=== PATIENT | female | born 1975 | race Caucasian/White ===

== ENCOUNTER 2018-03-30 16:07 | Outpatient (CLI) | payer OTHER, SELFPAY ==
--- NOTE | 2018-03-30 14:12 | DI.RAD_ITS ---
SYMPTOMS/DIAGNOSIS: RIGHT WRIST PAIN, DECREASED MOBILITY S/P FALL, M25.531, [id number] RIGHT WRIST: The bones are normally mineralized. No degenerative changes are visible. There is a positive ulnar variance. No bony erosions are seen. IMPRESSION: Positive ulnar variance.
== END 2018-03-30 16:27 ==
PROVIDERS: PCP Nurse Practitioner; Visit Provider Nurse Practitioner
DX: M25.531 Pain in right wrist (principal); M25.631 Stiffness of right wrist, not elsewhere classified; W19.XXXA Unspecified fall, initial encounter
CPT/HCPCS: 73110

== ENCOUNTER 2021-01-18 02:49 | Outpatient (CLI) | payer OTHER, SELFPAY ==
[2021-01-18 09:40] LABS: Abs Immature Grans 0.02 10^3/uL (0.0-0.06); Absolute Basophil Count 0.05 10^3/uL (0.0-0.2); Absolute Eosinophil Count 0.06 10^3/uL (0.0-0.7); Absolute Lymphocyte Count 1.73 10^3/uL (1.2-3.4); Absolute Monocyte Count 0.41 10^3/uL (0.1-0.8); Absolute Neutrophil Count 5.15 10^3/uL (1.2-6.7); Basophils % 0.7; Eosinophils % 0.8; HGB 14.4 g/dL (11.2-15.7); Immature Grans % 0.3; Lymphocytes % 23.3; MCH 32.1 pg (27.0-33.0); MCHC 34.3 % (32.0-36.0); MCV 93.8 fL (80-95); Monocytes % 5.5; Neutrophils % 69.4; Nucleated RBC 0 %; Platelet Count 312 10^3/uL (130-400); RBC 4.48 10^6/uL (3.93-5.22); RDW 11.6 % (11.7-14.6); RDW-SD 39.8 fL; WBC 7.42 10^3/uL (4.4-10.8)
[2021-01-18 11:14] LABS: AST 14 U/L (15-37); Albumin 4.2 g/dL (3.4-5.0); Alkaline Phosphatase 46 U/L (46-116); Anion Gap 9.8 mmol/L (3-11); BUN 10 mg/dL (7-18); Bilirubin, Total 0.4 mg/dL (0.2-1.0); CO2 26.2 mmol/L (21.0-32.0); CREATININE 0.6 mg/dL (0.55-1.02); Calculated LDL 114 mg/dL (<100); Chloride 103 mmol/L (98-107); Cholesterol 235 mg/dL (<200); Glucose 93 mg/dL (74-106); HDL Cholesterol 114 mg/dL (40-60); Potassium 4.2 mmol/L (3.5-5.1); Sodium 139 mmol/L (136-145); Total Protein 7.3 g/dL (6.4-8.2); Triglyceride 36 mg/dL (<150)
[2021-01-18 11:25] LABS: ALT 25 U/L (14-59)
== END 2021-01-18 02:50 | disposition home or self-care (01) ==
LOC: LBO 02:49
PROVIDERS: PCP Nurse Practitioner; Visit Provider Nurse Practitioner
DX: I10 Essential (primary) hypertension (principal); J45.909 Unspecified asthma, uncomplicated
CPT/HCPCS: 36415; 80053; 80061; 85025

== ENCOUNTER 2021-04-09 13:09 | Outpatient (CLI) | payer OTHER, SELFPAY ==
--- NOTE | 2021-04-09 09:00 | DI.RAD_ITS ---
Exam(s) XR SHOULDER LT COMPLETE 2+V EXAM: XR SHOULDER LT COMPLETE 2+V CLINICAL HISTORY: pain since fall, wrenched shoulder, M25.512. TECHNIQUE: 2D digital imaging was performed of the left shoulder. Five images were obtained. AP in ternal and external rotation, Grashey, Y-view and axillary views were obtained. COMPARISON: No exams were available for comparison FINDINGS: BONES: No acute fracture is present. No bony destructive lesion is seen. JOINTS: No dislocation present. SOFT TISSUE: Normal. IMPRESSION: Unremarkable radiographs of the left shoulder. DATA REPOSITORY: RADIATION DOSE DELIVERED:
== END 2021-04-09 13:29 ==
PROVIDERS: PCP Nurse Practitioner; Visit Provider Nurse Practitioner
DX: M25.512 Pain in left shoulder (principal)
CPT/HCPCS: 73030

== ENCOUNTER 2021-04-29 03:10 | Outpatient (CLI) | payer OTHER, SELFPAY ==
--- NOTE | 2021-04-29 07:00 | DI.MAMMO_ITS ---
Exam(s) MAMMO SCREENING EXAM: MAMMO SCREENING CLINICAL HISTORY: screening.z12.39. TECHNIQUE: Bilateral full field digital CC and MLO mammographic images were obtained with 3D tomosyn thesis and utilizing computer aided detection (CAD). COMPARISON: None. This is a baseline mammogram on this 45-year-old patient. No significant family history. FINDINGS: Fibroglandular tissue pattern is moderately dense. In the central left breast approximately 3 cm in from the nipple there is a group of concerning micro calcifications. Spot Mag view recommended. Also ultrasound. There appears to be some architectural distortion in this region noted. Inverted nipple although thi s appears similar on the opposite side. In the opposite-right breast there an asymmetric density-possible nodule seen on the 3D MLO view appr oximately 12 o'clock position located 4 cm in from the nipple, measuring approximately 9 x 7 millimet ers. No malignant-appearing microcalcification groups in the right breast IMPRESSION: 1. There is a group of microcalcifications in the left breast which is concerning. Recommend spot co mpression 2D and 3D views as well as complete left breast ultrasound. 2. Asymmetric density-possible nodule in the opposite-right breast also evident. Spot compression ML O view of the right breast recommended. Also recommend complete right breast ultrasound. BI-RADS Category 0 - Assessment Incomplete: Need additional imaging evaluation Breast Density - Category C - Heterogeneously dense Breast density Category C or D implies that the patient has dense breast tissue. Dense breast tissue can make it harder to find cancer on a mammogram. Dense breast tissue is also associated with an incr eased risk of breast cancer. This information about the result of the mammogram report was provided to the patient to raise their awareness. Use this report when you speak with the patient about their risks for breast cancer, which includes their family history. At that time, you may recommend additional screening tests (Ultrasoun d or MRI) as these tests may add significant information. A negative radiographic report should not delay biopsy if a dominant or clinically suspicious mass is present. Up to ten percent of cancers are not identified on mammography. A negative report may reinforce clinical impression. Adenosis and dense breasts may obscure an underlying neoplasm. False positive reports average 6 to 10%. Patient will receive a letter notifying them of these results.
== END 2021-04-29 03:30 ==
PROVIDERS: PCP Nurse Practitioner; Visit Provider Nurse Practitioner
DX: Z12.31 Encounter for screening mammogram for malignant neoplasm of breast (principal); R92.8 Other abnormal and inconclusive findings on diagnostic imaging of breast
CPT/HCPCS: 77063; 77067

== ENCOUNTER 2021-05-07 01:12 | Outpatient (CLI) | payer OTHER, SELFPAY ==
--- NOTE | 2021-05-07 | DI.MAMMO_ITS ---
Exam(s) US BREAST LT COMPLETE US BREAST RT COMPLETE MG MAMMO SCREEN CALL BACK BI EXAM: MG MAMMO SCREEN CALL BACK BI and U/S breast bilateral complete CLINICAL HISTORY: MICROCALCIFICATIONS LEFT BREAST, ASYMMETRIC DENSITY RT BREAST. TECHNIQUE: Craniocaudal and mediolateral oblique Full Field Digital Mammography views of the bilater al breast with Computer Aided Diagnosis followed by Tomosynthesis and bilateral breast ultrasound. COMPARISON: Priors available for comparison. FINDINGS: Mammography/Tomosynthesis: Masses/Architectural Distortion: Additional views of the left breast confirm a collection of microcal cifications in the 12 o'clock position of the left breast with associated architectural distortion. In the right breast, there is also seen in area of architectural distortion in the upper outer quadra nt. Microcalcifictions: There is a grouping of suspicious microcalcifications at the 12 o'clock position as described above. Skin Thickening/Nipple Retraction: None. Bilateral complete breast US: Echotexture: Normal appearance of the glandular tissue. Shadowing: No suspicious foci. Cyst: Bilateral breast cysts are also noted. Solid lesions: There is a spiculated hypoechoic mass at the 12 o'clock position of the left breast 1 cm from the nipple measuring 1.2 cm. This corresponds to the area on the mammogram. In the right br east, there is a spiculated mass at the 10 o'clock position 1 cm from the nipple measuring 0.7 x 0.6 cm. This also corresponds to the area seen on the mammogram. Ductal dilation: None. IMPRESSION: 1. Bilateral suspicious hypoechoic masses. 2. There is a mass seen at the 12 o'clock position of the left breast 1 cm from the nipple correspond ing to the collection of microcalcifications in architectural distortion seen on the mammogram. 3. There is a mass seen at the 10 o'clock position of the right breast 1 cm from the nipple correspon ding to the area of architectural distortion seen on the mammogram. 4. The findings are highly suspicious for malignancy. 5. The findings were discussed with the patient on the date of the examination. BI-RADS Category 5 - Highly Suggestive of Malignancy: Biopsy recommended Breast Density - Category C - Heterogeneously dense Breast density Category C or D implies that the patient has dense breast tissue. Dense breast tissue can make it harder to find cancer on a mammogram. Dense breast tissue is also associated with an incr eased risk of breast cancer. This information about the result of the mammogram report was provided to the patient to raise their awareness. Use this report when you speak with the patient about their risks for breast cancer, which includes their family history. At that time, you may recommend additional screening tests (Ultrasoun d or MRI) as these tests may add significant information. A negative radiographic report should not delay biopsy if a dominant or clinically suspicious mass is present. Up to ten percent of cancers are not identified on mammography. A negative report may reinforce clinical impression. Adenosis and dense breasts may obscure an underlying neoplasm. False positive reports average 6 to 10%. Patient will receive a letter notifying them of these results.
== END 2021-05-07 01:32 ==
PROVIDERS: PCP Nurse Practitioner; Visit Provider Nurse Practitioner
DX: Z12.31 Encounter for screening mammogram for malignant neoplasm of breast (principal); R92.8 Other abnormal and inconclusive findings on diagnostic imaging of breast; N63.22 Unspecified lump in the left breast, upper inner quadrant; N63.11 Unspecified lump in the right breast, upper outer quadrant
CPT/HCPCS: 76642; 77063; 77067

== ENCOUNTER 2021-10-31 11:10 | Outpatient (REF) | payer OTHER, SELFPAY ==
--- NOTE | 2021-10-31 10:30 | PAPFT_PTH ---
PATIENT: Twin Alvarez LOC: [facility] U#:[id number] AGE/SX: 46/F ROOM: RE10/31/[address]: VANGIE Gonzalez : 1975 BED: DIS: 10/31/2021 SPEC #: [id number] RECD: 10/31/21 13:04 STATUS: MARISOL REIglesia #: [id number] KIRA: 10/31/21 10:[address]: Deann Clifton DEPT: [facility] Cytology RECD BY: Silvina Vega ENTERED: 10/31/21 13:04 SP TYPE: PAPFT RUY DR: Yuliya Sheffield APRN Tissues: 1 - CX/ENDOCX FOR PAP SMEARS Procedures: PAP THIN PREP/[facility] Screening HPV DNA PROBE Comments: [id number]
== END 2021-10-31 11:11 | disposition home or self-care (01) ==
LOC: LBN 11:10
PROVIDERS: PCP Nurse Practitioner; Visit Provider Nurse Practitioner Family
DX: Z11.51 Encounter for screening for human papillomavirus (HPV) (principal)
CPT/HCPCS: 88142; 87624

== ENCOUNTER 2023-01-21 10:22 | Outpatient (REF) | payer OTHER, SELFPAY | END 2023-01-21 10:23 | disposition home or self-care (01) | LOC: LBN 10:22 | PROVIDERS: PCP Nurse Practitioner; Visit Provider Obstetrics & Gynecology | DX: R30.0 Dysuria (principal) | CPT/HCPCS: 87077; 87086; 87186 ==

== ENCOUNTER 2023-03-23 04:30 | Outpatient (CLI) | payer OTHER, SELFPAY ==
[2023-03-23 08:47] LABS: MCH 30.9 pg (27.0-33.0); MCHC 34.1 % (32.0-36.0); MCV 91 fL (80-95); MPV 8.6 fL (8.0-11.0); Platelet Count 381 10^3/uL (130-400); RBC 4.86 10^6/uL (3.93-5.22); RDW 11.7 % (11.7-14.6); RDW-SD 39.3 fL; WBC 9.31 10^3/uL (4.4-10.8)
[2023-03-23 10:31] LABS: ALT 31 U/L (14-59); AST 21 U/L (15-37); Albumin 3.8 g/dL (3.4-5.0); Alkaline Phosphatase 53 U/L (46-116); Anion Gap 7.7 mmol/L (3-11); BUN 10 mg/dL (7-18); Bilirubin, Total 0.3 mg/dL (0.2-1.0); CO2 28.3 mmol/L (21.0-32.0); CREATININE 0.8 mg/dL (0.55-1.02); Calcium 9.8 mg/dL (8.5-10.1); Calculated LDL 116 mg/dL (<100); Chloride 102 mmol/L (98-107); Cholesterol 232 mg/dL (<200); Estimated GFR 91.97 (mL/min/1.73m2); Glucose 102 mg/dL (74-106); HDL Cholesterol 106 mg/dL (40-60); Potassium 4.1 mmol/L (3.5-5.1); Sodium 138 mmol/L (136-145); Total Protein 7.7 g/dL (6.4-8.2); Triglyceride 52 mg/dL (<150)
== END 2023-03-23 04:31 | disposition home or self-care (01) ==
LOC: LBO 04:31
PROVIDERS: PCP Nurse Practitioner; Referring Provider Nurse Practitioner; Visit Provider Nurse Practitioner
DX: I10 Essential (primary) hypertension (principal)
CPT/HCPCS: 36415; 80053; 80061; 85027

== ENCOUNTER 2024-04-08 14:57 | Outpatient (CLI) | payer OTHER, SELFPAY ==
--- NOTE | 2024-04-08 13:00 | DI.RAD_ITS ---
Exam(s) XR CHEST 2V PA LATERAL EXAM: XR CHEST 2V PA LATERAL CLINICAL HISTORY: Fever, cough, URI, J06.9, r/o infiltrate TECHNIQUE: 2D digital imaging was performed. Two views. COMPARISON: No exams were available for comparison FINDINGS: HEART: Normal size. Aorta: Not dilated. PULMONARY VASCULATURE: Normal. MEDIASTINUM: Unremarkable. LUNGS: Clear. PLEURAL SPACE: No pleural effusion or pneumothorax. BONE:Unremarkable for age. SOFT TISSUES: Status post left mastectomy. IMPRESSION: No acute abnormality. DATA REPOSITORY: RADIATION DOSE DELIVERED:
== END 2024-04-08 15:17 ==
LOC: DI 14:58
PROVIDERS: PCP Nurse Practitioner; Visit Provider Family Medicine
DX: J06.9 Acute upper respiratory infection, unspecified (principal)
CPT/HCPCS: 71046